=== PATIENT | female | born 1975 ===

== ENCOUNTER 2017-07-06 12:37 | Emergency (ER) | payer OTHER ==
[2017-07-06 12:37] VITALS: BMI 34.3
[2017-07-06 12:48] VITALS: RESP 16; TEMP 98.2; O2SAT 98
[2017-07-06 13:35] LABS: EOS # 0.3 K/uL (0.0-0.7); HEMATOCRIT 38.5 % (34.0-47.0); LYMPH % 45.1 % (20.0-40.0); MEAN CELL VOLUME 87.7 fl (81.0-99.0); MEAN CORPUSCULAR HEMOGLOBIN 29.6 pg (27.0-31.0); MEAN CORPUSCULAR HGB CONC 33.8 g/dL (33.0-37.0); MEAN PLATELET VOLUME 8.7 fl (7.2-11.7); MONO # 0.5 K/uL (0.0-0.8); NEUT # 1.7 K/uL (1.8-7.0); NEUT % 36.9 % (50.0-75.0); NRBC % 0.2 % (0.0-0.0); RED CELL DISTRIBUTION WIDTH 13.5 % (11.5-14.5); WHITE BLOOD COUNT 4.5 K/uL (4.8-10.8)
[2017-07-06 13:46] LABS: ALB/GLOB RATIO 1.2 (1.0-2.1); ALKALINE PHOSPHATASE 77 U/L (38-126); ALT/SGPT 138 U/L (9-52); AST/SGOT 104 U/L (14-36); BILIRUBIN,TOTAL 0.5 mg/dl (0.2-1.3); BLOOD UREA NITROGEN 12 mg/dl (7-17); CALCIUM 9.4 mg/dL (8.4-10.2); CARBON DIOXIDE 21 mmol/L (22-30); CHLORIDE 106 mmol/L (98-107); GFR AFRICAN-AMERICAN > 60; GLUCOSE,RANDOM 106 mg/dL (65-105); LIPASE 162 U/L (23-300); MAGNESIUM 1.8 MG/DL (1.6-2.3); POTASSIUM 3.6 MMOL/L (3.6-5.0); SODIUM 138 mmol/l (132-148); TOTAL PROTEIN 7.4 G/DL (6.3-8.2)
[2017-07-06 13:56] LABS: URINE BILIRUBIN NEGATIVE (NEGATIVE); URINE BLOOD SMALL (NEGATIVE); URINE COLOR STRAW (YELLOW); URINE GLUCOSE (UA) NEG (Normal); URINE KETONE NEGATIVE (NEGATIVE); URINE LEUKOCYTE ESTERASE NEG Leu/uL (Negative); URINE PROTEIN NEGATIVE (NEGATIVE); URINE UROBILINOGEN 0.2-1.0 mg/dL (0.2-1.0); WBC URINE < 1 /hpf (0-5)
--- NOTE | 2017-07-06 13:57 | ED PDOC ---
HPI: Chest Pain Time Seen by Provider: 07/06/17 13:03 Chief Complaint (Nursing): Chest Pain History Per: Patient History/Exam Limitations: no limitations Onset/Duration Of Symptoms: Gradual (for one week, cp started this am) Current Symptoms Are (Timing): Still Present Severity: Moderate Front/Back of Body, Lg (Color): 1 - right sided dull heath for one week waxing and waning, no relief with tpoical lidocaine, flexeril and tramadol Quality: Dull Associated Symptoms: denies: Nausea, Dyspnea, Diaphoresis, Syncope Modifying Factors: None Exacerbating Factors: None Alleviating Factors: None Additional History Per: Patient Additional Complaint(s): ED for evaluation of right sided headache x 1 week and "pinching" left chest pain that started today. Past Medical History Reviewed: Historical Data, Nursing Documentation, Vital Signs Vital Signs: Last Vital Signs Temp 98.2 F 07/06/17 12:46 Pulse 81 07/06/17 16:04 Resp 16 07/06/17 16:04 BP 118/50 L 07/06/17 16:04 Pulse Ox 98 07/06/17 16:04 - Medical History PMH: Arthritis, Gastritis Comment Only: Gall Bladder Disease (S/P CHOLECYSTECTOMY) - Surgical History Surgical History: Cholecystectomy, Endoscopy, Tonsillectomy - Family History Family History: States: Unknown Family Hx - Living Arrangements Living Arrangements: With Family - Social History Current smoker - smoking cessation education provided: No - Immunization History Hx Tetanus Toxoid Vaccination: No Hx Influenza Vaccination: Yes Hx Pneumococcal Vaccination: No - Home Medications Home Medications: Ambulatory Orders Medication Instructions Recorded Omeprazole 40 mg PO DAILY #60 capsule. 01/08/16 Diphenhydramine HCl [Allergy 25 mg PO DAILY 06/28/17 Medication] Famotidine [Pepcid] 40 mg PO 06/28/17 Ibuprofen [Motrin Tab] 800 mg PO PRN 06/28/17 Metoclopramide [Reglan] 10 mg PO PRN 06/28/17 Prednisone 10 mg PO DAILY 06/28/17 - Allergies Allergies/Adverse Reactions: Allergies Allergy/AdvReac Type Severity Reaction Status Date / Time morphine Allergy Intermediate NAUSEA Verified 07/06/17 12:46 Review of Systems ROS Statement: Except As Marked, All Systems Reviewed And Found Negative Constitutional: Negative for: Fever, Chills Cardiovascular: Positive for: Chest Pain. Negative for: Palpitations, Edema, Light Headedness Respiratory: Negative for: Cough, Shortness of Breath Gastrointestinal: Negative for: Nausea, Vomiting, Abdominal Pain Musculoskeletal: Negative for: Neck Pain Skin: Negative for: Rash Neurological: Positive for: Headache. Negative for: Weakness, Numbness, Incoordination, Seizures, Altered Mental Status, Dizziness Physical Exam - Reviewed Nursing Documentation Reviewed: Yes Vital Signs Reviewed: Yes - Physical Exam Appears: Positive for: Uncomfortable (morbidly obese) Head Exam: Positive for: ATRAUMATIC, NORMAL INSPECTION, NORMOCEPHALIC Skin: Positive for: Normal Color, Warm, Dry Eye Exam: Positive for: Normal appearance, EOMI, PERRL. Negative for: Nystagmus , Periorbital swelling, Periorbital tenderness, Conjunctival injection, Scleral icterus ENT: Positive for: Pharynx Is (clear,mmm). Negative for: Nasal Congestion, Pharyngeal Erythema, Tonsillar Exudate, Tonsillar Swelling Neck: Positive for: Normal, Painless ROM, Supple. Negative for: Decreased ROM, Limited ROM, Trachea Midline Cardiovascular/Chest: Positive for: Regular Rate, Rhythm, Chest Non Tender. Negative for: Edema, Gallop, Murmur, Bradycardia, Tachycardia Respiratory: Positive for: Normal Breath Sounds. Negative for: Decreased Breath Sounds, Accessory Muscle Use, Crackles, Rales, Rhonchi, Stridor, Wheezing , Respiratory Distress Pulses-Radial (L): 2+ Pulses-Radial (R): 2+ Gastrointestinal/Abdominal: Positive for: Normal Exam, Bowel Sounds, Soft. Negative for: Tenderness Back: Positive for: Normal Inspection. Negative for: L CVA Tenderness, R CVA Tenderness Extremity: Positive for: Normal ROM. Negative for: Tenderness, Pedal Edema Neurologic/Psych: Positive for: Alert, online activist II-XII, Oriented. Negative for: Motor/Sensory Deficits - Laboratory Results Result Diagrams: 07/06/17 13:32 07/06/17 13:32 - ECG ECG: Positive for: Interpreted By Me ECG Rhythm: Positive for: Normal QRS, Normal ST Segment, Sinus Rhythm (63). Negative for: ST/T Changes Interpretation Of Abn EKG: no evidence of ischemia O2 Sat by Pulse Oximetry: 98 Pulse Ox Interpretation: Normal - Radiology X-Ray: Interpreted by Me X-Ray Interpretation: No Acute Disease Disposition - Clinical Impression Clinical Impression: Chest pain, Headache - Patient ED Disposition Is Patient to be Admitted: No Counseled Patient/Family Regarding: Studies Performed, Diagnosis - Disposition Referrals: [facility] [Outside] (2 to 3 days) Disposition: Discharged to Home Care Disposition Time: 16:52 Condition: GOOD Instructions: Acute Headache (ED), Chest Pain (ED) Forms: [facility] (Thai) Print Language: DANISH
[2017-07-06 14:01] LABS: PARTIAL THROMBOPLASTIN TIME 32.8 Seconds (25.6-37.1)
[2017-07-06 14:03] LABS: RBC URINE 13 /hpf (0-3)
--- NOTE | 2017-07-06 14:54 | RAD ---
HISTORY: Chest pain COMPARISON: 11/05/2016. FINDINGS: LUNGS: No active pulmonary disease. PLEURA: No significant pleural effusion identified, no pneumothorax apparent. CARDIOVASCULAR: No radiographic findings to suggest acute or significant cardiovascular disease. OSSEOUS STRUCTURES: No significant abnormalities. VISUALIZED UPPER ABDOMEN: Normal. OTHER FINDINGS: None. IMPRESSION: No active disease. No significant interval change compared to the prior examination(s).
--- NOTE | 2017-07-06 15:33 | CT ---
PROCEDURE: CT HEAD WITHOUT CONTRAST. HISTORY: Headache COMPARISON: None available. TECHNIQUE: Axial computed tomography images were obtained through the head/brain without intravenous contrast. Radiation dose: Total exam DLP = 754.4 mGy-cm. This CT exam was performed using one or more of the following dose reduction techniques: Automated exposure control, adjustment of the mA and/or kV according to patient size, and/or use of iterative reconstruction technique. FINDINGS: HEMORRHAGE: No intracranial hemorrhage. BRAIN: No mass effect or edema. No atrophy or chronic microvascular ischemic changes. VENTRICLES: Unremarkable. No hydrocephalus. CALVARIUM: Unremarkable. PARANASAL SINUSES: Unremarkable as visualized. No significant inflammatory changes. MASTOID AIR CELLS: Unremarkable as visualized. No inflammatory changes. OTHER FINDINGS: None. IMPRESSION: No acute intracranial hemorrhage.
[2017-07-06] MEDS ORDERED: DiphenhydrAMINE 50 mg/ml Inj ONE (15:40)
[2017-07-06] MEDS: DiphenhydrAMINE 50 mg/ml Inj IVP STA (15:46)
[2017-07-06 16:05] VITALS: BP 118/50; PULSE 81
--- NOTE | 2017-07-07 10:45 | CARD ---
APPROVED REPORT EKG Measurement Heart [id number] <Conclusion> Normal sinus rhythm with sinus arrhythmia Normal ECG
== END 2017-07-06 21:20 | disposition home or self-care (01) ==
LOC: H.ER 12:37
DX: R07.89 Other chest pain (principal); R51 Headache
CPT/HCPCS: 70450; 71010; 80053; 81003; 81025; 83690; 83735; 83880; 84484; 85025; 85378; 85610; 85730; 93005; 96374; 96375; 99283; J1200; J1885; J2765